=== PATIENT | male | born 1945 | race African-American/Black ===

== ENCOUNTER 2017-04-14 12:51 | Inpatient (IN) | payer MEDICARE, MEDICAID ==
[2017-04-14 13:46] LABS: #Eosinphils 0.1 thou/uL (0.0-0.7); #Lymphocytes 1.1 thou/uL (1.20-3.40); #Monocytes 1.9 thou/uL (0.11-0.59); %Basophils 0.1 % (0.0-1.0); %Eosinophils 0.4 % (0.0-10.0); %Lymphocytes 7.5 % (21.0-51.0); %Monocytes 12.4 % (0.0-10.0); Hematocrit 29.5 % (42.0-52.0); Red Blood Cell (RBC) Count 3.54 mill/uL (4.70-6.10)
[2017-04-14 13:56] LABS: ALT (SGPT) 8 U/L (8-55); AST (SGOT) 12 U/L (5-34); Alkaline Phosphatase 98 U/L (40-150); Anion Gap 11 mmol/L (10-20); BUN (Urea Nitrogen) 25 mg/dL (8.4-25.7); Bilirubin, Total 0.3 mg/dL (0.2-1.2); CK (CPK) 54 U/L (30-200); Calc. Creatinine Clearance 0 mL/min (70-130); Carbon Dioxide 27 mmol/L (23-31); Chloride 104 mmol/L (98-107); Estimated GFR-MDRD 51; Globulin 3.3 g/dL (2.4-3.5)
[2017-04-14 14:00] LABS: Troponin I 0.011 ng/mL (< 0.028)
[2017-04-14 14:13] LABS: PTT 27.5 SEC (22.9-36.1)
--- NOTE | 2017-04-14 14:17 | CT ---
NONCONTRAST HEAD CT: HISTORY: The patient has a history of transient ischemic attacks. The patient has a headache and right-sided weakness. COMPARISON: 02/02/2016 TECHNIQUE: A noncontrast head CT is performed from the skull base to the skull vertex. FINDINGS: No parenchymal hemorrhage. No extraaxial hematoma. No midline shift. Basilar cisterns are patent. Age appropriate atrophy. Cortical sequeira white matter differentiation is preserved. The ventricles and sulci are patent and symmetric. Stable calcification/mineralization of the basal ganglia. Sta ble hypodensity in the left and right burnham radiata, as well as bilateral deep sequeira matter structur es due to remote lacunar infarcts. The calvarium is intact. Adequate aeration of the sinuses and mastoid air cells. Cavernous carotid atherosclerosis is identified. IMPRESSION: No acute intracranial process. The results of the study were discussed with Dr. Garza on 04/14/2017 at 1:00 p.m. CODE CR POS: [facility]
[2017-04-14 14:19] LABS: Prothrombin Time 13.5 SEC (12.0-14.7)
--- NOTE | 2017-04-14 15:34 | RAD ---
PORTABLE AP CHEST X-RAY 04/14/2017 HISTORY: Elevated white blood cell count, TIA. COMPARISON: 02/02/2016. FINDINGS: The patient is rotated to the right accentuating the mediastinal structures. Thoracic aorta does ap pear mildly ectatic. Pulmonary vasculature is within normal limits. Calcified pleural-based plaque is again seen at the lateral left mid lung zone at the left lung base. The lungs are otherwise mich ar. There has been no interval change from prior study. IMPRESSION: Stable chest without evidence or an acute cardiopulmonary process. POS: MED
[2017-04-14] MEDS ORDERED: Dextrose 50% Abboject 50 ML SYRINGE SLOW IVP PRN (16:54)
[2017-04-14] MEDS ORDERED: Docusate 100 MG CAP PO PRN (16:54)
[2017-04-14] MEDS ORDERED: Acetaminophen 325 MG TAB PO PRN (16:54)
[2017-04-14] MEDS ORDERED: Acetaminophen 650 MG Suppository PR PRN (16:54)
[2017-04-14] MEDS ORDERED: Dextrose 5% in Water 1,000 ML IV PRN (16:54)
[2017-04-14] MEDS ORDERED: Ondansetron ODT 4 MG TAB PO PRN (16:54)
[2017-04-14 16:55] LABS: Bilirubin Negative (Negative); Blood, Urine Negative (Negative); Glucose, Urine (Dipstick) Negative (Negative); Ketone, Urine Negative (Negative); Nitrite Negative (Negative); Protein, Urine (Dipstick) Negative (Neg-Trace); Urobilinogen 0.2 mg/dL (0.2-1.0)
[2017-04-14 16:58] LABS: Bacteria/HPF 1+ HPF (None Seen); Hyaline Casts/LPF 0-3 HYALINE CAST LPF (0-3 Hyaline); RBC/HPF 0-3 HPF (0-3); Squamous Epithelial 0-3 HPF (0-3)
[2017-04-14] MEDS ORDERED: HumaLOG 300 UNITS/3 ML VIAL SC PRN (17:14)
[2017-04-14] MEDS ORDERED: Milk Of Magnesia 30 ML UDCUP PO PRN (17:16)
[2017-04-14 17:44] LABS: Hemoglobin A1c 5.5 % (4.0-6.0)
[2017-04-14 17:56] LABS: Magnesium 1.9 mg/dL (1.6-2.6)
[2017-04-14] MEDS: Nicotine 14 MG PATCH TD SCH (19:53)
[2017-04-14] MEDS: Atorvastatin Calcium 40 MG TAB PO SCH (19:54)
[2017-04-14] MEDS ORDERED: FLU VACC TS2017-18 (>65YR) 0.5 ML SYRINGE IM ONE (21:00)
--- NOTE | 2017-04-14 23:00 | HP-2 ---
RESIDENT PHYSICIAN: Stanford Zazueta M.D. ATTENDING PHYSICIAN: Amna Fournier M.D. PRIMARY CARE PHYSICIAN: Rekha house. CODE STATUS: FULL. CHIEF COMPLAINT: Altered at [facility], found altered at snf. HISTORY OF PRESENT ILLNESS: This is a 70-year-old male with past medical history s ignificant for prior subarachnoid hemorrhage with residual right-sided weakness, prior TIA, hyperten dalia, coronary artery disease, and type 2 diabetes, who presented after an episode of altered mentat ion at the snf this morning. The patient was apparently normal around 11:30 and approximat kareen 20 minutes later, the nursing staff found him slumped over in his bed and was not acting [facility] The patient was not responding normally with some slurred speech, increased right-sided weak ness, and possible right-sided facial droop. EMS responded to the scene and then the symptoms appar ently resolved by the time the patient arrived in the ER. Currently, patient only complaining of a mild headache. PAST MEDICAL HISTORY: 1. Coronary artery disease, status post stent placement. 2. Type 2 diabetes mellitus, diet controlled. 3. Hypertension. 4. Chronic kidney disease, stage 3. 5. Dementia. 6. Prior TIA. 7. Prior subarachnoid hemorrhage with residual right-sided deficit. 8. COPD. PAST SURGICAL HISTORY: Cardiac catheterization with stent placement. ALLERGIES: 1. ASPIRIN. 2. PENICILLIN. MEDICATIONS: 1. Lipitor 10 mg at bedtime. 2. Coreg 6.25 mg b.i.d. 3. KCl 10 mEq daily. 4. Amlodipine 5 mg daily. 5. Plavix 75 mg daily. 6. Lasix 40 mg daily. FAMILY HISTORY: Unremarkable. SOCIAL HISTORY: The patient is a current smoker, smokes one-half to 1 pack per day for the past 30 y ears. He drinks alcohol couple times in a month. Lives in a snf. No illicit drug use. Elisa finn has 2 sisters nearby, who are his closest family members. REVIEW OF SYSTEMS: Ten point review of systems including general, eyes, ENT, respiratory, CV, GI, G U, skin, musculoskeletal, and neuro all negative except for those pertinent positives listed above i n the HPI. PHYSICAL EXAMINATION: VITAL SIGNS: Blood pressure 111/72, pulse 99, respiratory rate 17, temperature 98.7 and pulse ox 98 % on room air. GENERAL: The patient is alert and oriented x3, in no acute distress. He is thin, frail elderly gen tleman. In general, was appropriately interactive during the examination. HEENT: PERRLA, EOMI. He had muddy sclerae and pale appearing conjunctivae. ENT, TMs pearly sequeira w ithout bulging or erythema. Oropharynx is within normal limits with the exception of dry mucous mem branes. NECK: Supple. No lymphadenopathy, no thyromegaly and no bruits. CARDIOVASCULAR: Regular rate and rhythm. No murmurs and no gallops. Radial pulses are 2+ bilatera lly. Pedal pulses are 1+ bilaterally. RESPIRATORY: Normal effort. No retractions. Clear to auscultation bilaterally. ABDOMEN: Soft and nontender to palpation. Positive bowel sounds x4. No masses or distention. EXTREMITIES: No clubbing, no cyanosis and no edema. MUSCULOSKELETAL: Structure and tone are within normal limits. Muscle strength was 5/5 on the left upper and lower extremities, and 4/5 on the right upper and lower extremities. NEUROLOGIC: He had no focal deficits with the exception of his baseline right-sided weakness. He h ad an equivocal possible right facial droop, but was symmetric on facial movements. Sensation is wi thin normal limits. Deep tendon reflexes are 2/4 on the bilateral patella. Cranial nerves II-XII a re intact. GCS is 15. He had equivocal Babinski bilaterally. SKIN: Warm and dry without cyanosis or other lesions. PSYCHIATRIC: Appropriate affect and mood. LABORATORY DATA: CBC: White blood cell count was 15, platelets 535, hemoglobin 9.3, hematocrit 29. 5 and MCV 83. He had 79.6% neutrophils and no bands. CMP: Sodium 138, potassium 4, chloride 104, bicarbonate 27, BUN 25, creatinine 1.63, glucose 116, calcium 10, total protein 7 and albumin 3.7. Total bilirubin 0.3, AST 12, ALT 8 and alkaline phosphatase was 98. His coags, PT was 13.5, PTT 27. 5 and INR 1. Lactic acid was 1.7. IMAGING DATA: EKG was normal sinus rhythm. Chest x-ray was within normal limits. CT brain was neg ative for any acute intracranial process. He had age appropriate atrophy, stable calcifications of the basal ganglia, and stable hypodensity in the left and right burnham radiata and bilateral deep gr ay matter structures consistent with prior lacunar infarct. ASSESSMENT AND PLAN: This is a 71-year-old male with: 1. Acute neurovascular syndrome. Currently, neurological status is back at baseline. It appear mo re consistent with the transient ischemic attack. We will discuss with family goals of care tomorro w and see if they would like to proceed with an MRI and/or MRA head and neck. Last echo in 01/2015 showed a left ventricular ejection fraction of 50% to 55% unclear why the patient is currently on La six. We will go ahead and recheck echo as it had been longer than a year. The patient also had a c arotid Doppler in 01/2015 that showed mild intimal thickening involving the common carotid bilateral ly, but no other abnormalities. We will recheck fasting lipid panel with a goal LDL of less than 70 . Increase statin to high intensity. We will need to possibly change the dual antiplatelet therapy given failure secondary prevention on Plavix only. We will consult Neurology tomorrow for their op inion who last saw him in 01/2016. The patient is allergic to ASPIRIN. We will also check magnesiu m, TSH, A1c and orthostatics. Of note, glucose taken by EMS during the episode was 112. 2. Leukocytosis, possibly stress reaction with platelets also elevated. We will check CRP, blood c ulture, UA and culture to rule out infectious etiology as the cause of altered mental status. 3. Type 2 diabetes mellitus. Recheck A1c, Accu-Cheks before meals and at bedtime along with slidin g scale insulin. Altered mentation does not seem to be secondary to hypoglycemia as stated above. The patient on no hypoglycemic medications that I am aware of currently. 4. Normocytic anemia. Hemoglobin significantly decreased from prior admission 1 year ago down from 14 to 9.3. The patient also with elevated RDW, so we are checking iron studies. Also obtained fec al occult blood testing in the ER. Unclear about the patient's colonoscopy history. Consider perip heral smear if other studies are nonrevealing. 5. Hypertension. Blood pressure running on the low side of normal for age in the emergency room. We will cautiously restart home medications tomorrow, but adjust if necessary. Orthostatics pending . 6. Coronary artery disease. Continue beta devi and Plavix, the patient would likely benefit fro m low dose ROBERTO inhibitor due to diabetes as well. 7. Dementia. Mental status appears to be at baseline. 8. Chronic obstructive pulmonary disease. The patient on no inhalers or other related medications at home, monitor. DISPOSITION AND LENGTH OF HOSPITAL STAY: Two midnights. Systematic medications will be provided. History and physical exam as well as management discussed with Dr. Fournier.
[2017-04-15 05:33] LABS: Anion Gap 10 mmol/L (10-20); BUN (Urea Nitrogen) 22 mg/dL (8.4-25.7); Calc. Creatinine Clearance 41 mL/min (70-130); Calcium 9.3 mg/dL (7.8-10.44); Carbon Dioxide 28 mmol/L (23-31); Chloride 109 mmol/L (98-107); Cholesterol 113 mg/dl (< 200 Desired); Estimated GFR-MDRD 54; LDL Cholesterol, Calculated 71 mg/dL
[2017-04-15 05:36] LABS: Band 1 % (5-11); Hematocrit 25.1 % (42.0-52.0); Neutrophil 79 % (42-75); Red Blood Cell (RBC) Count 3.11 mill/uL (4.70-6.10); White Blood Cell (WBC) Count 8.8 thou/uL (4.8-10.8)
[2017-04-15] MEDS: Furosemide 40 MG TAB PO SCH (08:55)
[2017-04-15] MEDS: Carvedilol 6.25 MG TAB PO SCH ×2 (08:55→19:03)
[2017-04-15] MEDS: Enoxaparin Sodium 40 MG/0.4 ML SYRINGE SC SCH (08:56)
[2017-04-15] MEDS: Potassium Citrate 10 MEQ TAB PO SCH (08:56)
[2017-04-15] MEDS: Amlodipine 5 MG TAB PO SCH (08:56)
[2017-04-15] MEDS: Clopidogrel Bisulfate 75 MG TAB PO SCH (08:56)
[2017-04-15] MEDS: Ferrous Sulfate 325 MG TAB PO SCH ×2 (09:04→19:03)
--- NOTE | 2017-04-15 09:47 | PDOC.FM ---
- Subjective Subjective: The patient reports that he feels well this morning. He denies any complaints. He states that yesterday he was feeling dizzy, lightheaded, and had a headache, but today he had not issues. The patient denies any chest pain, SOB, headache, blurry vision, difficulty swallowing or speaking, increased weakness, hematuria , hematemesis, melena, hematochezia. - Objective MAR Reviewed: Yes Vital Signs & Weight: Vital Signs (12 hours) Temp Pulse Pulse Pulse Resp BP BP 04/15/17 08:56 84 04/15/17 08:55 117/64 04/15/17 07:50 98.5 F 84 23 H 04/15/17 07:24 84 87 108/76 04/15/17 04:49 98.5 F 87 16 04/15/17 04:05 98.6 F 04/15/17 02:55 99.6 F 04/15/17 00:16 100.4 F H 97 18 BP BP BP Pulse Ox 04/15/17 08:56 04/15/17 08:55 04/15/17 07:50 117/64 91 L 04/15/17 07:24 118/73 04/15/17 04:49 105/68 93 L 04/15/17 04:05 04/15/17 02:55 04/15/17 00:16 109/67 98 Weight Weight 66.224 kg Result Diagrams: 04/15/17 04:27 04/15/17 04:27 <Sade Gilbert - Last Filed: 04/15/17 09:45> - Objective Vital Signs & Weight: Vital Signs (12 hours) Temp Pulse Pulse Pulse Resp BP BP 04/16/17 11:47 98.1 F 86 18 04/16/17 11:13 90 126 H 126/72 109/67 04/16/17 11:09 82 04/16/17 07:25 99.1 F 82 16 04/16/17 05:13 98.9 F 80 16 BP BP Pulse Ox 04/16/17 11:47 96/73 96 04/16/17 11:13 04/16/17 11:09 04/16/17 07:25 118/70 94 L 04/16/17 05:13 118/66 94 L Weight Admit Weight 66.224 kg Weight 66.224 kg Result Diagrams: 04/16/17 03:55 04/15/17 04:27 <JesúsLiss - Last Filed: 04/16/17 12:40> Phys Exam - Physical Examination Constitutional: NAD HEENT: PERRLA, moist MMs, oral pharynx no lesions Neck: no nodes, supple No carotid bruits Respiratory: no wheezing, no rales, no rhonchi, clear to auscultation bilateral Cardiovascular: RRR, no significant murmur, no rub Gastrointestinal: soft, non-tender, no distention, positive bowel sounds Musculoskeletal: no edema, pulses present Neurological: normal sensation, moves all 4 limbs R sided weakness, 2+ reflexes bilaterally Psychiatric: normal affect, A&O x 3 Skin: no rash, cap refill <2 seconds <Sade Gilbert - Last Filed: 04/15/17 09:45> Dx/Plan (1) TIA (transient ischemic attack) Status: Acute Qualifiers: Transient cerebral ischemia type: unspecified Qualified Code(s): G45.9 - Transient cerebral ischemic attack, unspecified Plan: This is a 71 yo with a history of a TIA about one year ago who presented with a TIA with no CT changes and his symptoms resolved by presentation to the ED. He has a h/o SAH with residual R sided deficits. He came from the long term and was reported to have slumped over in his chair and had increased R sided weakness from his baseline. Tri 63, Total Chol 113, LDL 71, HDL 29 -PT/OT/Stroke team -Continue atorvastatin -Pt not on aspirin due to medication allergy -Continue plavix -Will discuss plans of care with family today -Will get repeat echo as prior was more than one year ago (2) Iron deficiency anemia Code(s): D50.9 - IRON DEFICIENCY ANEMIA, UNSPECIFIED Status: Acute Qualifiers: Iron deficiency anemia type: unspecified iron deficiency Qualified Code(s) : D50.9 - Iron deficiency anemia, unspecified Plan: Pt has h/o anemia on prior hospitalizations, but it is much lower at this time. It was 9.3 on admission and is 7.7 s/p one L NS in the ED. Iron studies showed Ferritin 15, TIBC 318, Iron 18 FOBT negative Pt has no signs or symptoms of anemia or blood loss -Will start oral iron supplementation -Will recommend outpatient monitoring -Will repeat CBC in AM (3) Leukocytosis Code(s): D72.829 - ELEVATED WHITE BLOOD CELL COUNT, UNSPECIFIED Status: Acute Qualifiers: Leukocytosis type: unspecified Qualified Code(s): D72.829 - Elevated white blood cell count, unspecified Plan: Pt had elevated WBC at 15 on admission, has downtrended to 8.8. He also had a fever of 100.4 overnight. He is showing no signs of infection. His UA had small LE and 1+ bacteria, but he denies any dysuria or increased frequency -Check urine cx -Check blood cx -Will trend WBC count -Monitor vital signs (4) CKD (chronic kidney disease) stage 3, GFR 30-59 ml/min Code(s): N18.3 - CHRONIC KIDNEY DISEASE, STAGE 3 (MODERATE) Status: Acute Plan: Pt has stage III CKD Cr and GFR right around his baseline. He showed some improvement s/p one L NS bolus - He may have had a small ALONZO contributing -Will continue to monitor (5) Elevated C-reactive protein (CRP) Code(s): R79.82 - ELEVATED C-REACTIVE PROTEIN (CRP) Status: Acute Plan: The patient had elevated CRP on admission to 2.76, this could be 2/2 infection -Check Urine Cx -Check Blood Cx (6) Type II diabetes mellitus Status: Acute Qualifiers: Diabetes mellitus complication status: without complication Diabetes mellitus termite control servicer insulin use: without mcfp use Qualified Code(s): E11.9 - Type 2 diabetes mellitus without complications Plan: A1c 5.5 on admission, well controlled Pt not on oral medication, will monitor (7) Hypertension Code(s): I10 - ESSENTIAL (PRIMARY) HYPERTENSION Status: Acute Qualifiers: Hypertension type: essential hypertension Qualified Code(s): I10 - Essential (primary) hypertension Plan: Pt BP have been well controlled since admission, will continue to monitor (8) Dementia Code(s): F03.90 - UNSPECIFIED DEMENTIA WITHOUT BEHAVIORAL DISTURBANCE Status: Acute Qualifiers: Dementia type: unspecified type Dementia behavioral disturbance: without behavioral disturbance Qualified Code(s): F03.90 - Unspecified dementia without behavioral disturbance Plan: This is a patient with baseline dementia, likely vascular in nature, but as his family has not been in the room I have been unable to get a complete history. -Will attempt to get in touch with family today to discuss goals of care -Pt resides at [facility] -Pt is DNR (9) History of subarachnoid hemorrhage Code(s): Z86.79 - PERSONAL HISTORY OF OTHER DISEASES OF THE CIRCULATORY SYSTEM Status: Acute Plan: Pt has a history of SAH with residual R sided weakness at baseline -He can walk, but uses a walker or requires assistance The residual weakness is clouding the picture from this TIA as the report was similar symptoms, but just worsened from his baseline. (10) CAD (coronary artery disease), [place] coronary artery Code(s): I25.10 - ATHSCL HEART DISEASE OF [place] CORONARY ARTERY W/O ANG PCTRS Status: Acute Qualifiers: [place] vs. transplanted heart: [place] heart Associated angina: without angina Qualified Code(s): I25.10 - Atherosclerotic heart disease of [place] coronary artery without angina pectoris Plan: Patient has h/o CAD -Unable to take aspirin 2/2 allergy has a history of a stent will continue plavix (11) History of heart artery stent Code(s): Z95.5 - PRESENCE OF CORONARY ANGIOPLASTY IMPLANT AND GRAFT Status: Chronic Plan: Will continue plavix Pt unable to take aspirin due to medication allergy <Sade Gilbert - Last Filed: 04/15/17 09:45> Attending Addendum - Attending Addendum I personally evaluated the patient and discussed the management with Dr. Gilbert on 04/15/17. I agree with the History, Examination, Assessment and Plan documented above with any addition or exceptions noted below. The patient's deficits appear to be resolved from the acute change that prompted admission. He will have MRI, carotid doppler and echo. <Liss Espinosa - Last Filed: 04/16/17 12:40>
[2017-04-15 11:36] VITALS: BMI 20.3
--- NOTE | 2017-04-15 17:58 | ULT ---
CAROTID DOPPLER: 04/15/17 HISTORY: TIA. Color doppler and spectral analysis and velocity recordings performed on the extracranial carotid ar teries. Mildly heterogenic plaque seen on ultrasound. Velocity recordings are within normal range bilaterall y. Vertebrals show antegrade flow. IMPRESSION: 1. Very mild echogenic plaque. 2. No evidence of hemodynamically significant stenosis. POS: [facility]
--- NOTE | 2017-04-15 18:49 | MRI ---
MRI BRAIN NONCONTRAST: DATE: 04/15/17 HISTORY: 71-year-old male with generalized weakness. MRI requested to differentiate TIA versus stroke. COMPARISON: 02/03/16. FINDINGS: There is diffuse parenchymal volume loss of the cerebrum, cerebellum, and midbrain. There is mild to moderate ex vacuo dilation of the lateral and third ventricles due to this. There are moderate dean for student affairs willian ischemic white matter changes in the periventricular and deep cerebral white matter. There are m ultiple tiny old lacunar infarctions in the bilateral basal ganglia, left thalamus, david, body of bi lateral caudate nuclei, and a few in the left brachium pontis and left dentate nucleus of the cerebe llum. There is a very small focus of encephalomalacia and gliosis involving the right middle frontal gyrus representing a small old cortical infarction. In addition to the multiple tiny old lacunar in farctions in the david, there is a transverse thin linear T2 hyperintensity and an incomplete anterop osterior such linear hyperintensity (incomplete [id number] sign). This may or may not represent multisystem atrophy (MSA). The midbrain atrophy produces the hummingbird sign on the sagittal midlin e image, and the widening of the interpeduncular cistern. There is almost a morning glory sign on th e axial images of the midbrain. There is no restricted diffusion to indicate any acute infarction. T here is increased iron deposition in the globus pallidus bilaterally. There is no interval change ov erall since 02/03/16. IMPRESSION: 1. Multiple small old lacunar infarctions in the bilateral corpus striatum, left thalamus, and david. 2. Diffuse cerebral brain involutional changes and moderate chronic ischemic white matter holcomb es due to microvascular atherosclerosis. 3. Small old cortical infarction in the right middle frontal gyrus. 4. Signs questionable for either progressive supranuclear palsy (PSP) or multisystem atrophy (M SA). Recommend neurology consultation. 5. No interval change since 02/03/16. 6. No acute findings. Code T JN Gabriela POS: JACKIE
[2017-04-15] MEDS: Nicotine 14 MG PATCH TD SCH (18:59)
[2017-04-15] MEDS: Atorvastatin Calcium 40 MG TAB PO SCH (20:53)
[2017-04-16 05:39] LABS: Hematocrit 26.4 % (42.0-52.0); Mean Platelet Volume 6.1 fL (7.4-10.4); Neutrophil 52 % (42-75); Red Blood Cell (RBC) Count 3.18 mill/uL (4.70-6.10); Schistocytes SLIGHT = 2-5 cells (100X) (0-1/hpf); White Blood Cell (WBC) Count 8.6 thou/uL (4.8-10.8)
--- NOTE | 2017-04-16 06:57 | PDOC.FM ---
- Subjective Subjective: The patient denies any complaints this AM. He denies increased weakness from baseline, blurry vision, headache, SOB, chest pain, dizziness. He reports that he is ready to go home today. - Objective MAR Reviewed: Yes Vital Signs & Weight: Vital Signs (12 hours) Temp Pulse Resp BP BP BP Pulse Ox 04/16/17 05:13 98.9 F 80 16 118/66 94 L 04/16/17 00:09 97.8 F 80 16 113/72 95 04/15/17 21:53 97.4 F L 83 20 98 04/15/17 21:01 97.4 F L 83 20 120/68 98 04/15/17 20:00 97.4 F L 83 20 120/68 98 04/15/17 19:55 97.4 F L 83 20 120/68 98 Weight Admit Weight 66.224 kg Weight 66.224 kg Result Diagrams: 04/16/17 03:55 04/15/17 04:27 <Sade Gilbert - Last Filed: 04/16/17 08:05> - Objective Vital Signs & Weight: Vital Signs (12 hours) Temp Pulse Pulse Pulse Resp BP BP 04/16/17 11:47 98.1 F 86 18 04/16/17 11:13 90 126 H 126/72 109/67 04/16/17 11:09 82 04/16/17 07:25 99.1 F 82 16 04/16/17 05:13 98.9 F 80 16 BP BP Pulse Ox 04/16/17 11:47 96/73 96 04/16/17 11:13 04/16/17 11:09 04/16/17 07:25 118/70 94 L 04/16/17 05:13 118/66 94 L Weight Admit Weight 66.224 kg Weight 66.224 kg Result Diagrams: 04/16/17 03:55 04/15/17 04:27 <Liss Espinosa - Last Filed: 04/16/17 12:52> Phys Exam - Physical Examination Constitutional: NAD HEENT: moist MMs Respiratory: no wheezing, no rales, no rhonchi, clear to auscultation bilateral Cardiovascular: RRR, no significant murmur, no rub Gastrointestinal: soft, non-tender, no distention Musculoskeletal: no edema, pulses present 4/5 muscle strength on R, 5/5 muscle strength on L Psychiatric: normal affect, A&O x 3 <Sade Gilbert - Last Filed: 04/16/17 08:05> Dx/Plan (1) TIA (transient ischemic attack) Status: Acute Qualifiers: Transient cerebral ischemia type: unspecified Qualified Code(s): G45.9 - Transient cerebral ischemic attack, unspecified Plan: This is a 71 yo with a history of a TIA about one year ago who presented with a TIA with no CT changes and his symptoms resolved by presentation to the ED. He has a h/o SAH with residual R sided deficits. [facility] the [facility] and was reported to have slumped over in his chair and had increased R sided weakness from his baseline. Tri 63, Total Chol 113, LDL 71, HDL 29 Carotid dopplers showed no hemodynamically significant stenosis MRI showed no acute changes Echo showed evidence of diastolic dysfunction -PT/OT/Stroke team -Continue atorvastatin 40mg -Pt not on aspirin due to medication allergy -Continue plavix -The pt may need neurology f/u outpatient for concern for progressive supranuclear palsy or multisystem atrophy (2) Iron deficiency anemia Code(s): D50.9 - IRON DEFICIENCY ANEMIA, UNSPECIFIED Status: Acute Qualifiers: Iron deficiency anemia type: unspecified iron deficiency Qualified Code(s) : D50.9 - Iron deficiency anemia, unspecified Plan: Pt has h/o anemia on prior hospitalizations, but it is much lower at this time. It was 9.3 on admission and is 7.7 s/p one L NS in the ED - It has improved to 8.0 today. Iron studies showed Ferritin 15, TIBC 318, Iron 18 FOBT negative Pt has no signs or symptoms of anemia or blood loss This could be due to colon cancer. -Will start oral iron supplementation -Will recommend outpatient monitoring - pt may need evaluation for a colonoscopy (3) Leukocytosis Code(s): D72.829 - ELEVATED WHITE BLOOD CELL COUNT, UNSPECIFIED Status: Resolved Qualifiers: Leukocytosis type: unspecified Qualified Code(s): D72.829 - Elevated white blood cell count, unspecified Plan: Pt had elevated WBC at 15 on admission, has downtrended to 8.8. He is showing no signs of infection. Afebrile His UA had small LE and 1+ bacteria, but he denies any dysuria or increased frequency -Check urine cx -Check blood cx -Monitor vital signs (4) CKD (chronic kidney disease) stage 3, GFR 30-59 ml/min Code(s): N18.3 - CHRONIC KIDNEY DISEASE, STAGE 3 (MODERATE) Status: Acute Plan: Pt has stage III CKD Cr and GFR right around his baseline. He showed some improvement s/p one L NS bolus - He may have had a small ALONZO contributing -Will continue to monitor (5) Elevated C-reactive protein (CRP) Code(s): R79.82 - ELEVATED C-REACTIVE PROTEIN (CRP) Status: Acute Plan: The patient had elevated CRP on admission to 2.76, this could be 2/2 infection -Check Urine Cx -Check Blood Cx (6) Type II diabetes mellitus Status: Acute Qualifiers: Diabetes mellitus complication status: without complication Diabetes mellitus exterminator helper insulin use: without jail use Qualified Code(s): E11.9 - Type 2 diabetes mellitus without complications Plan: A1c 5.5 on admission, well controlled Pt not on oral medication, will monitor (7) Hypertension Code(s): I10 - ESSENTIAL (PRIMARY) HYPERTENSION Status: Acute Qualifiers: Hypertension type: essential hypertension Qualified Code(s): I10 - Essential (primary) hypertension Plan: Pt BP have been well controlled since admission, will continue to monitor (8) Dementia Code(s): F03.90 - UNSPECIFIED DEMENTIA WITHOUT BEHAVIORAL DISTURBANCE Status: Acute Qualifiers: Dementia type: unspecified type Dementia behavioral disturbance: without behavioral disturbance Qualified Code(s): F03.90 - Unspecified dementia without behavioral disturbance Plan: This is a patient with baseline dementia, likely vascular in nature, but as his family has not been in the room I have been unable to get a complete history. -Pt resides at [facility] -Pt is DNR (9) History of subarachnoid hemorrhage Code(s): Z86.79 - PERSONAL HISTORY OF OTHER DISEASES OF THE CIRCULATORY SYSTEM Status: Acute Plan: Pt has a history of SAH with residual R sided weakness at baseline -He can walk, but uses a walker or requires assistance The residual weakness is clouding the picture from this TIA as the report was similar symptoms, but just worsened from his baseline. (10) CAD (coronary artery disease), [place] coronary artery Code(s): I25.10 - ATHSCL HEART DISEASE OF [place] CORONARY ARTERY W/O ANG PCTRS Status: Acute Qualifiers: [place] vs. transplanted heart: [place] heart Associated angina: without angina Qualified Code(s): I25.10 - Atherosclerotic heart disease of [place] coronary artery without angina pectoris Plan: Patient has h/o CAD -Unable to take aspirin 2/2 allergy has a history of a stent will continue plavix (11) History of heart artery stent Code(s): Z95.5 - PRESENCE OF CORONARY ANGIOPLASTY IMPLANT AND GRAFT Status: Chronic Plan: Will continue plavix Pt unable to take aspirin due to medication allergy <Sade Gilbert - Last Filed: 04/16/17 08:05> Attending Addendum - Attending Addendum I personally evaluated the patient and discussed the management with Dr. Gilbert. I agree with the History, Examination, Assessment and Plan documented above with any addition or exceptions noted below. The patient is requesting to go home. He is back to baseline. Speech therapy was evaluating the patient and noted that they may adjust his diet recommendations. [facility] with f/u neurology as an outpt. <Liss Espinosa - Last Filed: 04/16/17 12:52>
[2017-04-16] MEDS: Amlodipine 5 MG TAB PO SCH (11:09)
[2017-04-16] MEDS: Furosemide 40 MG TAB PO SCH (11:09)
[2017-04-16] MEDS: Carvedilol 6.25 MG TAB PO SCH (11:09)
[2017-04-16] MEDS: Potassium Citrate 10 MEQ TAB PO SCH (11:10)
[2017-04-16] MEDS: Enoxaparin Sodium 40 MG/0.4 ML SYRINGE SC SCH (11:10)
[2017-04-16] MEDS: Clopidogrel Bisulfate 75 MG TAB PO SCH (11:10)
[2017-04-16] MEDS: Ferrous Sulfate 325 MG TAB PO SCH (11:10)
[2017-04-16 11:47] VITALS: TEMP 98.1
[2017-04-16 12:27] VITALS: BP 126/72
--- NOTE | 2017-04-16 17:38 | DIS-2 ---
DATE OF ADMISSION: 04/14/2017 DATE OF DISCHARGE: 04/16/2017 ADMITTING ATTENDING: Dr. Amna Fournier. DISCHARGE ATTENDING: Dr. Liss Espinosa. ADMITTING RESIDENT: Dr. Stanford Zazueta. DISCHARGE RESIDENT: Dr. Sade Gilbert. CONSULTATIONS: None. PROCEDURES: None. PRIMARY DIAGNOSES: 1. Transient ischemic attack. 2. Iron deficiency anemia. 3. Leukocytosis. 4. Elevated C-reactive protein. SECONDARY DIAGNOSES: 1. Chronic kidney disease stage 3. 2. Type 2 diabetes. 3. Hypertension. 4. Dementia. 5. History of subarachnoid hemorrhage. 6. Coronary artery disease. 7. History of heart stents. DISCHARGE MEDICATIONS: 1. Amlodipine 5 mg p.o. daily. 2. Atorvastatin 40 mg p.o. at bedtime. 3. Carvedilol 6.25 mg p.o. b.i.d. with meals. 4. Clopidogrel 75 mg p.o. daily. 5. Ferrous sulfate 325 mg p.o. b.i.d. with meals. 6. Furosemide 40 mg p.o. daily. 7. Milk of Magnesia 400 mg p.o. p.r.n. constipation. 8. Potassium citrate 10 mEq p.o. daily. 9. Tylenol regular strength 325 mg p.o. q.6 hours p.r.n. pain. 10. Zyrtec 10 mg p.o. daily. 11. Celexa 20 mg p.o. at bedtime. 12. Albuterol tartrate 45 mcg inhaled hours p.r.n. dyspnea, wheezing or shortness of breath. 13. Nitroglycerin 0.4 mg sublingual q.5 minutes p.r.n. 14. Risperdal 0.5 mg p.o. at bedtime. DISCONTINUED MEDICATION: Atorvastatin 10 mg p.o. at bedtime. HISTORY OF PRESENT ILLNESS/HOSPITAL COURSE: This is a 71-year-old male who presented to the emergen cy room after having an episode of right-sided weakness where he slumped over in his chair and repor cameron being dizzy during this time. The patient had a history of a subarachnoid hemorrhage that resid ual left-sided weakness; however, he had increasing right-sided weakness during this episode. By time the patient was brought to the hospital, this episode had resolved and he was experiencing no symptoms. The patient reports no change in vision, no difficulty breathing, no chest pain, no othe r signs of weakness or numbness. The patient's CT scan showed no acute changes and he had a brain M RI done that showed multiple small old lacunar infarctions in bilateral corpus striatum, left thalam us and david as well as diffuse cerebral brain involutional changes and moderate chronic ischemic whi te matter changes due to microvascular atherosclerosis, small old cortical infarction in the right m iddle frontal gyrus and then it also showed signs questionable for either progressive supranuclear p alsy or multisystem atrophy and thus recommended a possible Neurology consult. However, this MRI di d not show any acute findings. The patient had carotid Doppler studies that showed very mild echoge willian plaque, but no evidence of hemodynamically significant stenosis. He had an echocardiogram repor t that showed ejection fraction of 50% to 55%, some E to A flow reversal suggestive of diastolic dys function, mild mitral regurgitation, mild aortic regurgitation and mild tricuspid regurgitation. Th e patient has an ASPIRIN allergy, so he was not started on aspirin; however, he is continued on his Plavix and his atorvastatin was increased from 10 to 40. Of note, the patient had a hemoglobin of 9 .3 on admission, that dropped to 7.7 and then 8 at discharge. The patient received some fluids in t he evening. He had iron studies that revealed iron deficiency anemia. The patient does not recall ever having a colonoscopy here being worked up for colon cancer or for this the cause of his iron de ficiency anemia, so we recommended that he follow up with his primary care physician for potential c olonoscopy to be evaluated for colon cancer. He was started on iron at this visit. It was also rec ommended that the patient follow up outpatient with Neurology regarding results of his MRI as the [place] has dementia and goals of care were discussed. They do not feel that an inpatient workup was necessary for the MRI findings that depending on what the primary care physician decided that an out patient follow up might be warranted. It was noted that the patient was not on an JOHN inhibitor or an ARB; however, as the patient has chronic kidney disease stage 3, recommended that patient follow up with PCP and consider adding that to his regimen where he could be monitored outpatient to watch for signs of worsening kidney function. The patient had no complaints during this hospitalization a nd is very unremarkable. HOSPITAL COURSE: I will attempt to get in touch with his primary care physician's office to relay t he information found during this hospitalization and recommendations. DISPOSITION: Stable. DISCHARGE INSTRUCTIONS: 1. Location: [facility]. 2. Diet: Pureed nectar thick consistency diet. 3. Activity: As tolerated. 4. Follow up with Dr. Calvo, within 7 days to discuss Neurology consultation, anemia workup, dec ision of addition of an John and ARB.
== END 2017-04-16 15:50 | DRG 69 ==
LOC: ERS 12:51 → 2SE 17:55
PROVIDERS: ADMIT Student in an Organized Health Care Education/Training Program; ATTEND Student in an Organized Health Care Education/Training Program
PROC: B030ZZZ Magnetic Resonance Imaging (MRI) of Brain (ICD-10-PCS; principal; 2017-04-15)
DX: G45.9 Transient cerebral ischemic attack, unspecified (principal); F03.90 Unspecified dementia, unspecified severity, without behavioral disturbance, psychotic disturbance, mood disturbance, and anxiety; J44.9 Chronic obstructive pulmonary disease, unspecified; I08.3 Combined rheumatic disorders of mitral, aortic and tricuspid valves; E11.9 Type 2 diabetes mellitus without complications; I12.9 Hypertensive chronic kidney disease with stage 1 through stage 4 chronic kidney disease, or unspecified chronic kidney disease; D50.9 Iron deficiency anemia, unspecified; N18.3 Chronic kidney disease, stage 3 (moderate); I25.10 Atherosclerotic heart disease of native coronary artery without angina pectoris; I25.2 Old myocardial infarction; D72.829 Elevated white blood cell count, unspecified; F17.210 Nicotine dependence, cigarettes, uncomplicated; R79.82 Elevated C-reactive protein (CRP); Z95.5 Presence of coronary angioplasty implant and graft; Z88.0 Allergy status to penicillin; Z88.8 Allergy status to other drugs, medicaments and biological substances; Z66 Do not resuscitate; Z86.79 Personal history of other diseases of the circulatory system
CPT/HCPCS: 36415; 36416; 70450; 70551; 71010; 80048; 80053; 80061; 81003; 81015; 82274; 82553; 82728; 83036; 83540; 83550; 83605; 83735; 84100; 84443; 84484; 85025; 85610; 85730; 86140; 87040; 93005; 93306; 93880; 96360; 96361; G8978-GP-CK; G8979-GP-CJ; G8987-GO-CK; G8988-GO-CJ; G8996-GN-CI; G8996-GN-CK; G8997-GN-CI; G8997-GN-CJ; J1650

== ENCOUNTER 2017-12-06 08:19 | Emergency (ER) | payer MEDICARE, MEDICAID ==
--- NOTE | 2017-12-06 08:43 | CT ---
CT BRAIN: HISTORY: Stroke. Unable to speak. The patient is unresponsive. History of dementia. FINDINGS: Noncontrast-enhanced CT images of the brain are obtained. Comparison is made to previous exam from . Noncontrast-enhanced CT images of the brain demonstrate diffuse cortical atrophy. Bilateral basal ga nglion calcification seen. Extensive deep white matter ischemic changes seen. Old bilateral periventricular stroke seen. Multiple areas of old infarction seen in the left thalamus and basal ganglion bilaterally. This is s table and unchanged since the previous exam. No evidence of acute intracranial abnormality is seen. IMPRESSION: 1. No evidence of acute intracranial hemorrhages or masses. 2. Extensive old areas of strokes, unchanged since the previous comparison CT. Findings discussed with Dr. Talavera at 8:28 a.m. on 12/06/17. CODE CR POS: JACKIE
[2017-12-06 09:09] LABS: #Basophils 0.1 thou/uL (0.0-0.2); #Eosinphils 0.3 thou/uL (0.0-0.7); #Lymphocytes 2.2 thou/uL (1.20-3.40); #Monocytes 1.2 thou/uL (0.11-0.59); #Neutrophils 4.7 thou/uL (1.40-6.50); %Basophils 0.7 % (0.0-1.0); %Eosinophils 3.3 % (0.0-10.0); %Monocytes 13.9 % (0.0-10.0); %Neutrophils 56.1 % (42.0-75.0); Hemoglobin 14.4 g/dL (14.0-18.0); Mean Corpuscular Hemoglobin 31.5 pg (27.0-31.0); Mean Corpuscular Volume 95.5 fl (80.0-94.0); Mean Platelet Volume 6.8 fL (7.4-10.4); Platelet Count 280 thou/uL (130-400); RBC Distribution Width 14.1 % (11.5-14.5); Red Blood Cell (RBC) Count 4.57 mill/uL (4.70-6.10); White Blood Cell (WBC) Count 8.4 thou/uL (4.8-10.8)
[2017-12-06 09:33] LABS: ALT (SGPT) 24 U/L (8-55); AST (SGOT) 20 U/L (5-34); Albumin 3.7 g/dL (3.4-4.8); Alkaline Phosphatase 99 U/L (40-150); Anion Gap 13 mmol/L (10-20); BUN (Urea Nitrogen) 19 mg/dL (8.4-25.7); Bilirubin, Total 0.3 mg/dL (0.2-1.2); CK (CPK) 86 U/L (30-200); Calc. Creatinine Clearance 0 mL/min (70-130); Calcium 9.6 mg/dL (7.8-10.44); Carbon Dioxide 25 mmol/L (23-31); Chloride 106 mmol/L (98-107); Estimated GFR-MDRD 63; Glucose 88 mg/dL (83-110); Protein, Total 6.7 g/dL (5.8-8.1); Sodium 140 mmol/L (136-145)
[2017-12-06 09:38] LABS: CKMB 1.2 ng/mL (0-6.6)
[2017-12-06 09:40] LABS: Bilirubin Negative (Negative); Blood, Urine Negative (Negative); Clarity CLOUDY (Clear); Glucose, Urine (Dipstick) Negative (Negative); Leukocyte Moderate (Negative); Nitrite Negative (Negative); Protein, Urine (Dipstick) Negative (Neg-Trace); Specific Gravity, Urine 1.012 (1.002-1.036); Urobilinogen 0.2 mg/dL (0.2-1.0)
[2017-12-06 09:42] LABS: Bacteria/HPF 2+ HPF (None Seen); Hyaline Casts/LPF 0-3 HYALINE CAST LPF (0-3 Hyaline); Pathc Cast-AUWi Flag 0.14 (0-2.49); RBC/HPF 0-3 HPF (0-3); Squamous Epithelial 0-3 HPF (0-3); WBC/HPF 21-50 HPF (0-3)
[2017-12-06] MEDS ORDERED: cefTRIAXone\\ROCEPHIN 1 GM VIAL ONE (11:04)
== END 2017-12-06 13:08 | disposition home or self-care (01) ==
LOC: ERS 08:19
DX: E86.0 Dehydration (principal); N39.0 Urinary tract infection, site not specified; F03.90 Unspecified dementia, unspecified severity, without behavioral disturbance, psychotic disturbance, mood disturbance, and anxiety; Z86.73 Personal history of transient ischemic attack (TIA), and cerebral infarction without residual deficits; J44.9 Chronic obstructive pulmonary disease, unspecified; N18.9 Chronic kidney disease, unspecified; I25.10 Atherosclerotic heart disease of native coronary artery without angina pectoris; I25.2 Old myocardial infarction; E11.9 Type 2 diabetes mellitus without complications; I10 Essential (primary) hypertension; F17.210 Nicotine dependence, cigarettes, uncomplicated; Z79.899 Other long term (current) drug therapy
CPT/HCPCS: 70450; 80053; 81003; 81015; 82553; 83605; 83880; 84484; 85025; 87040; 87077; 87086; 87186; 96361; 96374; J0696